=== PATIENT | female | born 1940 | race Caucasian/White ===

== ENCOUNTER 2020-02-22 12:09 | Emergency (ER) | payer OTHER ==
[~2020-02-22] VITALS: Ht 165.1 cm; Wt 86.2 kg
--- NOTE | 2020-02-22 12:22 | NUR ---
ANDREW, FROM HOME C/O GENERALIZED WEAKNESS, CURRENTLY ON CIPRO FOR UTI. TO ER BED 4, HOOKED TO LINE PRODUCTION COOK, BP CUFF AND POX, CHANGED TO HOSP GOWN, WARM BLANKET PROVIDED, PATIENT AAO x 4, BREATHING EVEN AND UNLABORED, NOT IN RESPIRATORY DISTRESS. DR PORTILLO AT BEDSIDE FOR EVAL.
[2020-02-22] MEDS ORDERED: IV NS 0.9% 1,000 ML BAG IV ONE (12:30)
[2020-02-22] MEDS ORDERED: ONDANSETRON HCL/PF 4 MG/2 ML VIAL IVP ONE (12:30)
[2020-02-22] MEDS ORDERED: ONDANSETRON HCL/PF 4 MG/2 ML VIAL ONE (12:43)
--- NOTE | 2020-02-22 12:49 | NUR ---
CHEMICAL APPLICATOR AT BEDSIDE FOR XRAY.
[2020-02-22 13:00] LABS: BASOPHILS # (AUTO) 0.1 /CMM (0.0-0.2); BASOPHILS % (AUTO) 0.8 % (0.0-2.0); HEMATOCRIT 30 % (33-45); HEMOGLOBIN 9.9 g/dL (11.5-14.8); LYMPHOCYTES # (AUTO) 1.1 /CMM (0.8-4.8); LYMPHOCYTES % (AUTO) 11.6 % (20.0-44.0); MEAN CORPUSCULAR HGB CONC 33 g/dl (31.0-36.0); MEAN CORPUSCULAR VOLUME 87 fL (82-100); MONOCYTES # (AUTO) 0.8 /CMM (0.1-1.30); MONOCYTES % (AUTO) 7.8 % (2.0-12.0); NEUTROPHILS # (AUTO) 7.6 /CMM (1.8-8.9); NEUTROPHILS % (AUTO) 77.8 % (43.0-81.0); PLATELET COUNT (AUTO) 240 /CMM (150-450); RED BLOOD CELL COUNT(AUTO) 3.41 MIL/uL (4.0-5.2); WHITE BLOOD COUNT (AUTO) 9.8 K/uL (4.3-11.0)
[2020-02-22 13:08] LABS: CALCIUM, SERUM 8.8 mg/dL (8.5-10.1); CARBON DIOXIDE 25 mmol/L (21-32); CHLORIDE 100 mmol/L (98-107); CREATININE 1.2 mg/dL (0.6-1.3); GLUCOSE 167 mg/dL (74-106); POTASSIUM 3.8 mmol/L (3.5-5.1); SODIUM SERUM 136 mmol/L (136-145); UREA NITROGEN, BLOOD 47 mg/dL (7-18)
[2020-02-22 13:14] LABS: ALANINE AMINOTRANSFERASE 15 U/L (12-78); ALBUMIN 3.3 g/dL (3.4-5.0); ALKALINE PHOSPHATASE 58 U/L (46-116); ASPARTATE AMINOTRANSFERASE 10 U/L (15-37); BILIRUBIN,DIRECT 0.1 mg/dL (0.0-0.2); BILIRUBIN,TOTAL 0.5 mg/dL (0.2-1.0); TOTAL PROTEIN, SERUM 6.5 g/dL (6.4-8.2)
[2020-02-22] MEDS ORDERED: CEFTRIAXONE 1GM BAG (ER ONLY) 1 GM/50 ML PIGGYBACK IV ONE (14:00)
--- NOTE | 2020-02-22 14:00 | NUR ---
CALLED [facility] [phone] FILE OPENED AND MIRANDA BONILLA WILL CALL US BACK.
[2020-02-22] MEDS ORDERED: ALPR0.255 PO (14:14)
[2020-02-22] MEDS ORDERED: ATOR40TA PO (14:14)
[2020-02-22] MEDS ORDERED: TRAZ-182 PO (14:14)
[2020-02-22] MEDS ORDERED: MELO-107 PO (14:14)
[2020-02-22] MEDS ORDERED: LATA2.5D7 EACHEYE (14:14)
[2020-02-22] MEDS ORDERED: LISI10TA5 PO (14:14)
[2020-02-22] MEDS ORDERED: MODAFINIL PO (14:14)
[2020-02-22] MEDS ORDERED: BIOT10006 PO (14:14)
[2020-02-22] MEDS ORDERED: ARIP5TAB10 PO (14:14)
[2020-02-22] MEDS ORDERED: MULT-447 PO (14:14)
[2020-02-22] MEDS ORDERED: TRAZ-257 PO (14:14)
[2020-02-22] MEDS ORDERED: FAMO40TA7 PO (14:14)
[2020-02-22] MEDS ORDERED: PARO-42 PO (14:14)
[2020-02-22] MEDS ORDERED: CHOL400T PO (14:14)
[2020-02-22] MEDS ORDERED: CALC1TAB30 PO (14:14)
[2020-02-22] MEDS ORDERED: AMLO5TAB9 PO (14:14)
--- NOTE | 2020-02-22 14:22 | NUR ---
URINE SAMPLE COLLECTED AND SENT TO LAB
--- NOTE | 2020-02-22 14:28 | NUR ---
TRANSFER INFO [facility] MAGO MARTIN CALL [phone] FOR REPORT BLS PRN WILL TRANSPORT ETA IS 60 MINS
[2020-02-22] MEDS ORDERED: CEFTRIAXONE 2 G in IV D5W 100 ML IV ONE (14:30)
[2020-02-22 14:44] LABS: APPEARANCE,URINE Clear (CLEAR); BILIRUBIN,URINE Negative (NEGATIVE); BLOOD, URINE Negative Ery/uL (NEGATIVE); COLOR,URINE Yellow (YELLOW); KETONES,URINE Negative (NEGATIVE); LEUKOCYTE ESTERASE ,URINE Negative (NEGATIVE); NITRITE, URINE Negative (NEGATIVE); PROTEIN,URINE Negative (NEGATIVE); UGLUCOSE Negative (NEGATIVE); UROBILINOGEN,URINE 0.2 EU/dL (0.2)
--- NOTE | 2020-02-22 14:50 | NUR ---
RAPID COVID SWAB DONE AND SENT TO LAB.
--- NOTE | 2020-02-22 14:58 | NUR ---
REPORT GIVEN TO [facility]
--- NOTE | 2020-02-22 15:27 | NUR ---
COVID RESULT: NEGATIVE
--- NOTE | 2020-02-22 15:52 | NUR ---
PICKED UP BY [facility] IN STABLE CONDITION. PATIENT WILL BE TRANSFERRED TO [facility] ED. CLINICALS PROVIDED TO EMS TO BE GIVEN TO [place].
[2020-02-22 15:54] VITALS: BP 139/71
== END 2020-02-22 15:58 | disposition short-term general hospital (02) ==
LOC: ER 12:13
DX: N12 Tubulo-interstitial nephritis, not specified as acute or chronic (principal); E86.0 Dehydration; J98.11 Atelectasis; Z20.828 Contact with and (suspected) exposure to other viral communicable diseases; D64.9 Anemia, unspecified; R00.0 Tachycardia, unspecified; R94.31 Abnormal electrocardiogram [ECG] [EKG]; Z79.899 Other long term (current) drug therapy; Z96.651 Presence of right artificial knee joint; I10 Essential (primary) hypertension; E11.9 Type 2 diabetes mellitus without complications; F32.9 Major depressive disorder, single episode, unspecified; F41.9 Anxiety disorder, unspecified; H40.9 Unspecified glaucoma; M19.90 Unspecified osteoarthritis, unspecified site
CPT/HCPCS: 36415; 71045; 80048; 80076; 81001; 83605 ×2; 84484; 85025; 85730; 87040 ×2; 87077; 87086; 87186; 87426; 93005; 96361; 96365; 96375; 99285; C9803; J0696; J2405; J7030; J7060; 81000-TC